=== PATIENT | female | born 1940 | race Caucasian/White ===

== ENCOUNTER 2018-10-02 06:08 | Day surgery (SDC) | payer MEDICARE ==
[2018-10-01 11:08] VITALS: BMI 28.5
[2018-10-02] MEDS ORDERED: CEFAZOLIN 2 GM/50 ML BAG ONE (07:31)
--- NOTE | 2018-10-02 07:51 | RAD ---
CHEST 2 VIEWS: HISTORY: Preoperative exam. COMPARISON: None. FINDINGS: Atherosclerosis of the aorta. Normal cardiac silhouette. The pulmonary vessels and hilum are normal . Costophrenic angles are clear. Lungs are hyperinflated. Bilateral apical pleural thickening. In creased density in the right paratracheal region. No pneumothorax or osseous abnormalities. IMPRESSION: 1. Increased right paratracheal density. The possibility of a mass cannot be excluded. Further int errogation with chest CT is recommended. 2. Underlying hyperinflation possibly due to chronic obstructive pulmonary disease is noted. 3. Atherosclerosis of the aorta. CODE T POS: [facility]
[2018-10-02] MEDS ORDERED: Fentanyl 100 MCG/2 ML VIAL ONE ×2 (07:58→08:37)
[2018-10-02] MEDS ORDERED: Midazolam HCl 2 mg/2 ml Vial ONE (07:58)
[2018-10-02 08:06] LABS: #Basophils 0.1 thou/uL (0.0-0.2); #Eosinphils 0.1 thou/uL (0.0-0.7); #Lymphocytes 1.5 thou/uL (1.20-3.40); #Monocytes 0.4 thou/uL (0.11-0.59); #Neutrophils 2.7 thou/uL (1.40-6.50); %Basophils 1.1 % (0.0-1.0); %Eosinophils 2.1 % (0.0-10.0); %Lymphocytes 31.2 % (21.0-51.0); %Monocytes 8.9 % (0.0-10.0); %Neutrophils 56.8 % (42.0-75.0); Hemoglobin 10.4 g/dL (12.0-16.0); Mean Corpuscular HGB CONC 31.7 g/dL (32.0-36.0); Mean Corpuscular Hemoglobin 28.7 pg (27.0-31.0); Mean Corpuscular Volume 90.6 fL (78.0-98.0); Mean Platelet Volume 6.8 fL (7.4-10.4); Platelet Count 190 thou/uL (130-400); RBC Distribution Width 13.1 % (11.5-14.5); Red Blood Cell (RBC) Count 3.64 mill/uL (4.20-5.40); White Blood Cell (WBC) Count 4.8 thou/uL (4.8-10.8)
[2018-10-02 08:25] LABS: Anion Gap 12 mmol/L (10-20); BUN (Urea Nitrogen) 22 mg/dL (9.8-20.1); Calc. Creatinine Clearance 48 mL/min (70-130); Calcium 9.4 mg/dL (7.8-10.44); Carbon Dioxide 25 mmol/L (23-31); Chloride 107 mmol/L (98-107); Estimated GFR-MDRD 52; Glucose 125 mg/dL (83-110); Potassium 3.7 mmol/L (3.5-5.1); Sodium 140 mmol/L (136-145)
[2018-10-02] MEDS ORDERED: Bupivacaine HCl 0.5%/Epinephrine 1:200,000/PF 30 ml Vial ONE ×2 (08:50→12:06)
[2018-10-02] MEDS ORDERED: EPINEPHrine 1 MG/ML AMP ONE (08:50)
[2018-10-02] MEDS ORDERED: Bacitracin Zinc Ointment 30 gm TUBE ONE (08:50)
[2018-10-02] MEDS ORDERED: Ketorolac Tromethamine 30 MG/ML VIAL ONE ×2 (11:31→12:51)
[2018-10-02] MEDS ORDERED: Lidocaine 1% PF 5 ML VIAL ONE (12:51)
[2018-10-02] MEDS ORDERED: PROPOFOL 200 MG/20 ML VIAL ONE (12:51)
[2018-10-02] MEDS ORDERED: Ondansetron PF 4 MG/2 ML Vial ONE (12:51)
--- NOTE | 2018-10-02 20:39 | RAD ---
INTRAOPERATIVE IMAGING OF THE RIGHT WRIST: 10/02/18 COMPARISON: None. HISTORY: Injury, trauma, surgery. FINDINGS: Partially visualized right forearm demonstrates screw and plate fixation traversing mid/distal ulnar shaft. IMPRESSION: ORIF as above. POS: [facility]
--- NOTE | 2018-10-03 02:46 | OP ---
PREOPERATIVE DIAGNOSIS: Right wrist triangular fibrocartilage tear with scapholunate partial tear an d synovitis. POSTOPERATIVE DIAGNOSIS: Right wrist triangular fibrocartilage tear with scapholunate partial tear a nd synovitis evidence of ulnar carpal impingement through the ulnar with ulnar distal articular surface intact, but impingement with ulnar deviation. PROCEDURES PERFORMED: 1. Right wrist arthroscopic triangular fibrocartilage tear resection. 2. Right wrist scapholunate interosseous membrane partial tear resection. 3. Right wrist synovectomy, partial. 4. Right ulnar shortening osteotomy, Rayhack technique with rehab plate. 5. C-arm supervision. COMPLICATIONS: None. FINDINGS: Again, central to radial TFCC tear markedly jagged edges. Thick cartilaginous surfaces an d evidence of impingement early on the lunate with synovitis here and chondritis grade 2. TOURNIQUET TIME: 38 minutes. ESTIMATED BLOOD LOSS: 15 mL. DESCRIPTION OF PROCEDURE: After successful general LMA technique, the limb was prepped and draped. The patient had time out done appropriately. A sterile arthroscopic towel was used. She was placed in lateral traction with a well-padded elbow for distraction. We established 3-4, 6U, 6R portals aft er injecting 10 mL of normal saline into the wrist and a panoramic view of the wrist was done which r evealed the findings listed above. This included the fact triangular fibrocartilage tear was almost a centimeter in depth. Primarily, the radial insertion with underlying ulna seen and there was some early chondral changes on the ulnar lunate consistent with impingement as well as on the scapholunate joint, partial tear of the membrane with a small 4 mm x 3 mm chondral flap. These were resected wit h the scope along with the arthroscopic resection of the TFCC alternating between the 3-4, 6U, 6R por tals. Once this was done, we removed the arthroscope, we had finished the wrist synovectomy as well, and th en we closed the portals. We removed the arthroscopic equipment except for the fluid with epinephrin e, inflated the tourniquet after limb exsanguination to 250 mmHg pressure, made a zigzag direct later al approach using a Dennise type to the ulna. We released the fascia, subperiosteally dissected until we reached the bone. C-arm was used to confirm that the plate in the distal radioulnar joint with screw fixation, so we placed the Rayhack cut device with appropriate 3-hole position proximal, s ecured it with the 4 screws and then using standard technique, cut a 2 mm piece. We removed the cut plate accompanying the standard plate along with the reduction device to reduce the cut anatomically, placed a lag screw across it of appropriate length and then two distal screws. We removed the devic e, the cut remained anatomic. The screws were checked, now protruding too far. All were acceptable. We then released the tourniquet, had hemostasis obtained, there was excellent ulnar and radial pulses . We closed the fascia after obtaining hemostasis with a running 0 Vicryl, subcutaneous closure was accomplished with a running 4-0 Monocryl in the skin, epidermal layer was closed with interrupted 4-0 nylon. The patient left the operating room now in an applied sugar tong splint or a long arm splint with no evidence of anesthetic or operative complications.
--- NOTE | 2018-10-07 08:13 | EKG ---
Test Reason : PREOP Blood Pressure : / mmHG Vent. Rate : 072 BPM Atrial Rate : 072 BPM P-R Int : 188 ms QRS Dur : 092 ms QT Int : 408 ms P-R-T Axes : 055 029 014 degrees QTc Int : 446 ms Normal sinus rhythm Normal ECG No previous ECGs available Confirmed by DR. Tana FERNANDEZ ([id number]) on 10/07/2018 8:13:06 AM Referred By: LALA Confirmed By:DR. Tana FERNANDEZ
== END 2018-10-02 12:15 | disposition home or self-care (01) ==
LOC: SDC 06:08
PROVIDERS: ATTEND Orthopaedic Surgery Hand Surgery
PROC: 0MB54ZZ Excision of Right Wrist Bursa and Ligament, Percutaneous Endoscopic Approach (ICD-10-PCS; principal; 2018-10-02)
PROC: 0PHK04Z Insertion of Internal Fixation Device into Right Ulna, Open Approach (ICD-10-PCS; 2018-10-02)
PROC: 0RBN4ZZ Excision of Right Wrist Joint, Percutaneous Endoscopic Approach (ICD-10-PCS; 2018-10-02)
DX: S63.591A Other specified sprain of right wrist, initial encounter (principal); M65.88 Other synovitis and tenosynovitis, other site; M94.8X8 Other specified disorders of cartilage, other site; M25.831 Other specified joint disorders, right wrist; M19.031 Primary osteoarthritis, right wrist; E11.9 Type 2 diabetes mellitus without complications; I10 Essential (primary) hypertension; K21.9 Gastro-esophageal reflux disease without esophagitis; E07.9 Disorder of thyroid, unspecified; Z79.82 Long term (current) use of aspirin; Z79.84 Long term (current) use of oral hypoglycemic drugs; Z79.899 Other long term (current) drug therapy; Z88.2 Allergy status to sulfonamides
CPT/HCPCS: 25390; 29844; 29846; 71046; 73110; 76001; 80048; 85025; 93005; 96374; C1713; 36415; 93010; J0171; J0670; J1885; J2001; J2250; J2405; J2704; J3010